=== PATIENT | male | born 1980 | race Hispanic/Latino ===

== ENCOUNTER 2021-06-02 07:46 | Day surgery (SDC) | payer OTHER ==
[2021-06-02] MEDS ORDERED: CEFAZOLIN/SWI 2gm 2 GM/20 ML SYR ONE (08:56)
[2021-06-02] MEDS ORDERED: Ringers Lactate 1,000 ML IV ONE (08:56)
[2021-06-02] MEDS ORDERED: propofoL 200 MG/20 ML VIAL IV ONE (09:21)
[2021-06-02] MEDS ORDERED: FENTANYL CITR 100 MCG/2 ML ONE ×2 (09:22→12:40)
[2021-06-02] MEDS ORDERED: MIDAZOLAM HCL 2 MG/2 ML INJ ONE (09:23)
[2021-06-02] MEDS ORDERED: LIDOCAINE 1% MPF 5 ML VIAL ONE (09:23)
[2021-06-02] MEDS ORDERED: ROCURONIUM 50 MG/5 ML VIAL IV ONE (09:25)
[2021-06-02] MEDS: BUPIVACAINE 0.25% PF 30 ML VIAL ONE ×2 (10:29→10:38)
--- NOTE | 2021-06-02 11:54 | P.OP ---
Preoperative diagnosis: LEFT inguinal hernia Postoperative diagnosis: LEFT inguinal hernia Primary procedure: Open LEFT inguinal hernia repair with mesh Anesthesia: GETA + Local Estimated blood loss: <5cc Specimen: cord Lipoma Findings: indirect reducible inguinal hernia Complications: None Implants: Bard Perfix plug and patch hernia repair mesh Transferred to: Recovery Room Condition: Good
[2021-06-02] MEDS ORDERED: GLYCOPYRROLATE 0.2 MG/ML SYR ONE (12:19)
[2021-06-02] MEDS ORDERED: NEOSTIGMINE 1 MG/ML -5 ML ONE (12:19)
--- NOTE | 2021-06-02 12:23 | OP ---
Date of Procedure: 06/02/2021 Surgeon: Linus Munson MD, Preoperative Diagnosis: Left inguinal hernia. Postoperative Diagnosis: Left inguinal hernia. Procedure Performed: Open left inguinal hernia repair with mesh. Anesthesia: General endotracheal plus local with 0.25% Marcaine. Estimated Blood Loss: Less than 5 cc. Specimen: Cord lipoma. Findings: An indirect reducible inguinal hernia was noted. Complications: None. Implants: Medium Bard PerFix plug and patch hernia repair mesh system. Disposition: The patient transferred to recovery room in good condition. Procedure In Detail: After informed was obtained, the patient was brought to the operating room, pre pped and draped in the usual sterile fashion. After adequate was anesthesia achieved, an area of the left inguinal area was anesthetized with 0.25% Marcaine, sharply incised with a 15 blade and then di ssection continued down through subcutaneous tissues with electrocautery. I dissected down through C amper's fat and Raffaele fascia to expose the external oblique aponeurosis. The external oblique apone urosis was opened sharply with a 15 blade down through the tissue. It was then opened in its entiret y using the Metzenbaum scissors protecting the ilioinguinal nerve. The ilioinguinal nerve was dissec linus free and left on the lateral aspect of the undersurface of the external oblique aponeurosis. I t hen encircled the spermatic cord and structures and the cord lipoma was noted. I then dissected the cord lipoma off the spermatic cord structures and ligated it using a 3-0 Vicryl suture and sent it of f for pathologic examination. At this point, I returned the fat to the preperitoneal space, dissecte d the remainder of the hernia sac, inverted it at this point after opening it and sized a medium Bard PerFix plug. At this point, I placed into the preperitoneal space through the hernia defect and the n secured it circumferentially around using 3-0 interrupted PDS sutures with good apposition of the m esh to the tissues. At this point, the patient was positioned head up and Valsalva ensured that the m esh was in good position. At this point, I then sized the patch appropriately, secured it to the pub ic tubercle using 0 PDS suture and secured it to the medial edge of the internal oblique aponeurosis using 3-0 PDS sutures in an interrupted fashion and then the lateral undersurface of the inguinal lig ament using the same set of 3-0 PDS sutures and re-fashioned the deep inguinal ring with the same set of 3-0 PDS sutures. I then irrigated the area copiously and closed the external oblique aponeurosis over the top using 3-0 Vicryl suture in a running fashion. Deep dermal were closed with same set of 3-0 Vicryl suture and skin was closed with 4-0 Monocryl in a running fashion with Dermabond placed o roderick top. The patient tolerated the procedure well without evidence of complication and transferred t o PACU in good condition. All counts were correct at the end of the case. CONNIE/URSULA Voice ID: [id number] Report ID: [id number]
[2021-06-02] MEDS: HYDROMORPHONE HCL 1 MG/ML INJ ONE ×2 (12:29→12:39)
[2021-06-02] MEDS ORDERED: HYDROMORPHONE HCL 1 MG/ML INJ ONE (13:08)
[2021-06-02] MEDS ORDERED: HYDROCODONE/APAP 10/325 TAB ONE (13:45)
[2021-06-02 14:12] VITALS: BP 144/86; TEMP 98.8; O2SAT 100
== END 2021-06-02 14:45 | disposition home or self-care (01) ==
LOC: OR 07:46
PROVIDERS: ATTEND Surgery
PROC: 0YU60JZ Supplement Left Inguinal Region with Synthetic Substitute, Open Approach (ICD-10-PCS; principal; 2021-06-02 09:15)
DX: K40.90 Unilateral inguinal hernia, without obstruction or gangrene, not specified as recurrent (principal); R10.32 Left lower quadrant pain
CPT/HCPCS: 88302; 49505; J2704; J2250; J3010 ×2; J1170 ×2; J2710; J0690; J7120